=== PATIENT | male | born 1935 | race Caucasian/White ===

== ENCOUNTER 2016-06-30 10:59 | Inpatient (IN) | payer MEDICARE, OTHER ==
[~2016-06-30] VITALS: Ht 180.3 cm; Wt 90.5 kg
[~2016-06-30 10:59] MED LIST changes: -AMIO200T33 PO; -CARB25TA PO; -ESCI10TA53 PO; -FAMO-12 PO; -FURO20TA3 PO
[2016-06-30 12:18] LABS: Basophils # (auto) 0 uL; Basophils % (auto) 0.2 % (0.0-2.0); Eosinophils # (auto) 0.3 uL; Eosinophils % (auto) 3.2 % (0.0-7.0); Hematocrit 39.3 % (41.0-53.0); Hemoglobin 12.8 g/dL (13.5-17.5); Lymphocytes # (auto) 1.1 uL; Lymphocytes % (auto) 12.6 % (10.0-50.0); Mean Corpuscular Hemoglobin 30.7 pg (28.0-32.0); Mean Corpuscular Hgb Conc. 32.7 g/dL (32.0-36.0); Mean Platelet Volume 7.6 fL (7.4-10.4); Monocytes # (auto) 0.9 uL; Monocytes % (auto) 10.4 % (0.0-12.0); Neutrophils # (auto) 6.4 uL; Neutrophils % (auto) 73.6 % (37.0-80.0); Platelet Count (auto) 275 10^3/uL (140-450); Red Cell Distribution Width 15.7 % (11.6-16.0); White Blood Cell 8.7 10^3/uL (4.4-10.8)
[2016-06-30 12:34] LABS: BUN/Creatinine Ratio 22.9; Bilirubin, Total 0.4 mg/dL (0.2-1.0); Magnesium 2.5 mg/dL (1.6-2.6); Potassium 4.1 mmol/L (3.5-5.1); Total Protein 7.3 g/dL (6.4-8.2)
[2016-06-30] MEDS ORDERED: FURO20TA3 PO (14:00)
[2016-06-30] MEDS ORDERED: CARB25TA PO (14:01)
[2016-06-30] MEDS ORDERED: AMIO200T33 PO (14:02)
[2016-06-30] MEDS ORDERED: ESCI10TA53 PO (14:03)
[2016-06-30] MEDS ORDERED: FAMO-12 PO (14:03)
[2016-06-30] MEDS ORDERED: NITROGLYCERIN 0.4 MG SL TAB SL PRN (14:15)
[2016-06-30] MEDS ORDERED: LACTULOSE 20Gm/30ML SOLN PO PRN (14:15)
[2016-06-30] MEDS ORDERED: ALBUTEROL SULF 2.5 MG/0.5ML(0.5%) NEB SOLN NEB PRN (14:15)
[2016-06-30] MEDS ORDERED: HYDROcodone-ACET 5/325MG TAB PO PRN (14:15)
[2016-06-30] MEDS ORDERED: TEMAZEPAM 15 MG CAP PO PRN (14:15)
[2016-06-30] MEDS ORDERED: ONDANSETRON HCL 4 MG/2 ML VIAL IV PRN (14:15)
[2016-06-30] MEDS ORDERED: LORazepam 0.5 MG TAB PO PRN (14:15)
[2016-06-30] MEDS ORDERED: ACETAMINOPHEN 500 MG TAB PO PRN (14:15)
[2016-06-30] MEDS ORDERED: MORPHINE SULF INJ 2 MG/ML SYRINGE 1ML IV PRN ×2 (14:15)
[2016-06-30] MEDS ORDERED: AZITHROMYCIN 500MG/D5W 250ML 250 ML IV SCH (14:30)
[2016-06-30] MEDS ORDERED: cefTRIAXone 1GM/50ML D5W 50 ML IV ONE (14:30)
[2016-06-30] MEDS ORDERED: ASPirin 81 mg TAB PO ONE (14:45)
[2016-06-30] MEDS: SODIUM CHLORIDE 0.9% 1,000 ML IV SCH (15:02)
[2016-06-30] MEDS: ENOXAPARIN SOD 40 MG/0.4 ML SYRINGE SC SCH (15:03)
[2016-06-30] MEDS: AZITHROMYCIN 500MG/D5W 250ML 250 ML IV SCH (15:04)
[2016-06-30 17:05] VITALS: BP 140/59
[2016-06-30] MEDS: ALBUTEROL SULF 2.5 MG/0.5ML(0.5%) NEB SOLN NEB SCH (19:26)
[2016-06-30 22:00] VITALS: BP 119/62
[2016-06-30] MEDS: FAMOTIDINE 20 MG TAB PO SCH (22:00)
[2016-06-30] MEDS: CARB PO SCH (22:00)
[2016-06-30] MEDS: AMIODARONE HCL 200 MG TAB PO SCH (22:00)
[2016-06-30] MEDS: LEVODOPA PO SCH (22:00)
[2016-07-01] MEDS: ALBUTEROL SULF 2.5 MG/0.5ML(0.5%) NEB SOLN NEB SCH ×4 (01:50→18:38)
[2016-07-01] MEDS: SODIUM CHLORIDE 0.9% 1,000 ML IV SCH ×2 (02:43→15:20)
[2016-07-01] MEDS: CARB PO SCH ×3 (05:50→22:19)
[2016-07-01] MEDS: LEVODOPA PO SCH ×3 (05:50→22:19)
[2016-07-01] MEDS: LEVOTHYROXINE SODIUM 100 MCG TAB PO SCH (06:30)
[2016-07-01 09:00] VITALS: BP 105/56
[2016-07-01] MEDS: cefTRIAXone 1GM/50ML D5W 50 ML IV SCH (09:45)
[2016-07-01] MEDS: FUROSEMIDE 20 MG TAB PO SCH (10:00)
[2016-07-01] MEDS: AZITHROMYCIN 500MG/D5W 250ML 250 ML IV SCH (11:28)
[2016-07-01] MEDS: CITALOPRAM HYDROBR 20 MG TAB PO SCH (11:29)
[2016-07-01] MEDS: ASPirin 81 mg TAB PO SCH (11:29)
[2016-07-01] MEDS: DOCUSATE SOD 100 MG CAP PO SCH (11:29)
[2016-07-01] MEDS: AMIODARONE HCL 200 MG TAB PO SCH ×2 (11:30→22:19)
[2016-07-01] MEDS: ASPirin-EC 81 mg tab PO SCH (11:30)
[2016-07-01] MEDS: FAMOTIDINE 20 MG TAB PO SCH ×2 (11:31→22:19)
[2016-07-01] MEDS: ENOXAPARIN SOD 40 MG/0.4 ML SYRINGE SC SCH (11:31)
[2016-07-01] MEDS: CLOPIDOGREL BISULFATE 75 MG TAB PO SCH (11:31)
[2016-07-01 13:00] VITALS: BP 114/56
[2016-07-01 16:57] VITALS: BP 120/56
[2016-07-01 22:00] VITALS: BP 111/59
[2016-07-02] MEDS: ALBUTEROL SULF 2.5 MG/0.5ML(0.5%) NEB SOLN NEB SCH ×4 (00:07→19:04)
[2016-07-02] MEDS: SODIUM CHLORIDE 0.9% 1,000 ML IV SCH ×2 (03:43→16:13)
[2016-07-02 05:22] VITALS: BP 119/62
[2016-07-02] MEDS: CARB PO SCH ×3 (05:44→21:38)
[2016-07-02] MEDS: LEVODOPA PO SCH ×3 (05:44→21:38)
[2016-07-02] MEDS: LEVOTHYROXINE SODIUM 100 MCG TAB PO SCH (06:32)
[2016-07-02 09:00] VITALS: BP 116/59
[2016-07-02] MEDS: cefTRIAXone 1GM/50ML D5W 50 ML IV SCH (09:32)
[2016-07-02] MEDS: DOCUSATE SOD 100 MG CAP PO SCH (09:33)
[2016-07-02] MEDS: CLOPIDOGREL BISULFATE 75 MG TAB PO SCH (09:33)
[2016-07-02] MEDS: FUROSEMIDE 20 MG TAB PO SCH (09:33)
[2016-07-02] MEDS: AMIODARONE HCL 200 MG TAB PO SCH ×2 (09:34→21:37)
[2016-07-02] MEDS: ENOXAPARIN SOD 40 MG/0.4 ML SYRINGE SC SCH (09:34)
[2016-07-02] MEDS: ASPirin-EC 81 mg tab PO SCH (09:34)
[2016-07-02] MEDS: CITALOPRAM HYDROBR 20 MG TAB PO SCH (09:34)
[2016-07-02] MEDS: FAMOTIDINE 20 MG TAB PO SCH ×2 (09:34→21:38)
[2016-07-02] MEDS: ASPirin 81 mg TAB PO SCH (10:00)
[2016-07-02] MEDS: AZITHROMYCIN 500MG/D5W 250ML 250 ML IV SCH (11:45)
[2016-07-02 13:00] VITALS: BP 118/57
[2016-07-02 17:00] VITALS: BP 113/53
[2016-07-02 22:03] VITALS: BP 127/56
[2016-07-03] MEDS: ALBUTEROL SULF 2.5 MG/0.5ML(0.5%) NEB SOLN NEB SCH ×3 (00:33→12:00)
[2016-07-03] MEDS: SODIUM CHLORIDE 0.9% 1,000 ML IV SCH (04:43)
[2016-07-03 05:03] VITALS: BP 126/60
[2016-07-03] MEDS: CARB PO SCH ×2 (06:10→14:00)
[2016-07-03] MEDS: LEVODOPA PO SCH ×2 (06:10→14:00)
[2016-07-03] MEDS: LEVOTHYROXINE SODIUM 100 MCG TAB PO SCH (06:30)
[2016-07-03 08:19] VITALS: BP 145/62
[2016-07-03] MEDS: ENOXAPARIN SOD 40 MG/0.4 ML SYRINGE SC SCH (09:56)
[2016-07-03] MEDS: cefTRIAXone 1GM/50ML D5W 50 ML IV SCH (09:56)
[2016-07-03] MEDS: DOCUSATE SOD 100 MG CAP PO SCH (09:57)
[2016-07-03] MEDS: AMIODARONE HCL 200 MG TAB PO SCH (09:57)
[2016-07-03] MEDS: CLOPIDOGREL BISULFATE 75 MG TAB PO SCH (09:57)
[2016-07-03] MEDS: AZITHROMYCIN 500MG/D5W 250ML 250 ML IV SCH (09:57)
[2016-07-03] MEDS: CITALOPRAM HYDROBR 20 MG TAB PO SCH (09:58)
[2016-07-03] MEDS: FAMOTIDINE 20 MG TAB PO SCH (09:58)
[2016-07-03] MEDS: FUROSEMIDE 20 MG TAB PO SCH (09:59)
[2016-07-03] MEDS: ASPirin-EC 81 mg tab PO SCH (10:00)
[2016-07-03] MEDS: ASPirin 81 mg TAB PO SCH (10:00)
[2016-07-03 12:50] VITALS: BP 123/68
[2016-07-03 14:39] VITALS: BP 123/68
== END 2016-07-03 15:42 | disposition home or self-care (01) | DRG 194 ==
LOC: ER 11:04 → TELE 11:05 → TELE-EAST 16:46
PROVIDERS: ADMIT Internal Medicine; ATTEND Internal Medicine Cardiovascular Disease
DX: J18.9 Pneumonia, unspecified organism (principal); E44.1 Mild protein-calorie malnutrition; I25.10 Atherosclerotic heart disease of native coronary artery without angina pectoris; I95.1 Orthostatic hypotension; E03.9 Hypothyroidism, unspecified; E78.5 Hyperlipidemia, unspecified; F09 Unspecified mental disorder due to known physiological condition; G20 Parkinson's disease; X58.XXXA Exposure to other specified factors, initial encounter; S40.811A Abrasion of right upper arm, initial encounter; H55.00 Unspecified nystagmus; H53.2 Diplopia; I11.0 Hypertensive heart disease with heart failure; I49.5 Sick sinus syndrome; I50.9 Heart failure, unspecified; Z86.73 Personal history of transient ischemic attack (TIA), and cerebral infarction without residual deficits; Z95.5 Presence of coronary angioplasty implant and graft; Z88.0 Allergy status to penicillin; Z88.2 Allergy status to sulfonamides; Z79.82 Long term (current) use of aspirin; Z79.899 Other long term (current) drug therapy; Z90.49 Acquired absence of other specified parts of digestive tract; Z98.890 Other specified postprocedural states; Z82.49 Family history of ischemic heart disease and other diseases of the circulatory system; Y93.89 Activity, other specified; Y92.89 Other specified places as the place of occurrence of the external cause; Y99.8 Other external cause status
CPT/HCPCS: 36415; 70450; 71020; 80048; 80053; 82550; 82607; 83735; 84443; 84484; 85025; 85049; 85652; 87400; 93005; 94640; 95819; 96365; 97001; 97110; 97116; 97530; J0696

== ENCOUNTER → 2016-06-30 | Outpatient (CLI) | payer MEDICARE, OTHER ==
[~2016-06-30] MED LIST: AMIO200T33 PO; ASPI-231 PO; ATEN-60 PO; CARB25TA PO; CHOL20007 PO; CLOP75TA28 PO; DOCU-94 PO; ESCI10TA53 PO; FAMO-12 PO; FURO20TA3 PO; GLUC1CAP11 PO; ISOS20TA49 PO; LEV100T PO; MECL-87 PO; ROSU20TA14 PO; SIMV10TA73 PO
[2016-06-30 12:11] LABS: BUN/Creatinine Ratio 22.6; Calcium 8.9 mg/dL (8.5-10.1); Potassium 3.8 mmol/L (3.5-5.1)
[2016-06-30 12:55] LABS: Basophils # (auto) 0 uL; Eosinophils # (auto) 0.3 uL; Eosinophils % (auto) 3.6 % (0.0-7.0); Hematocrit 38.2 % (41.0-53.0); Hemoglobin 12.2 g/dL (13.5-17.5); Lymphocytes # (auto) 1.1 uL; Mean Corpuscular Hemoglobin 30.5 pg (28.0-32.0); Mean Corpuscular Volume 95.5 fL (80.0-100.0); Monocytes # (auto) 0.9 uL; Monocytes % (auto) 10.5 % (0.0-12.0); Neutrophils # (auto) 6.5 uL; Neutrophils % (auto) 72.9 % (37.0-80.0); Platelet Count (auto) 238 10^3/uL (140-450); Red Cell Distribution Width 14.9 % (11.6-16.0); White Blood Cell 8.8 10^3/uL (4.4-10.8)
== END | disposition home or self-care (01) ==
LOC: LAB 08:56
PROVIDERS: ATTEND Internal Medicine Cardiovascular Disease
DX: I10 Essential (primary) hypertension (principal); D64.9 Anemia, unspecified
CPT/HCPCS: 36415; 80048; 85025; 85049

== ENCOUNTER 2016-07-24 20:08 | Emergency (ER) | payer MEDICARE, OTHER ==
[~2016-07-24] VITALS: Ht 180.3 cm; Wt 90.7 kg
[~2016-07-24 20:08] MED LIST changes: +AMIO200T33 PO; -ATEN-60 PO; +CARB25TA PO; -CHOL20007 PO; +ESCI10TA53 PO; +FAMO-12 PO; +FURO20TA3 PO; -GLUC1CAP11 PO; -ISOS20TA49 PO; -MECL-87 PO; -ROSU20TA14 PO; -SIMV10TA73 PO
[2016-07-24 21:15] LABS: Basophils # (auto) 0 uL; Basophils % (auto) 0.2 % (0.0-2.0); Eosinophils # (auto) 0.2 uL; Hematocrit 39.4 % (41.0-53.0); Hemoglobin 12.4 g/dL (13.5-17.5); Lymphocytes # (auto) 1.4 uL; Lymphocytes % (auto) 17.1 % (10.0-50.0); Mean Corpuscular Hemoglobin 29.8 pg (28.0-32.0); Mean Corpuscular Hgb Conc. 31.4 g/dL (32.0-36.0); Mean Platelet Volume 7.3 fL (7.4-10.4); Monocytes # (auto) 0.8 uL; Monocytes % (auto) 9.3 % (0.0-12.0); Neutrophils # (auto) 5.8 uL; Neutrophils % (auto) 70.4 % (37.0-80.0); Platelet Count (auto) 312 10^3/uL (140-450); Red Cell Distribution Width 15.3 % (11.6-16.0); White Blood Cell 8.3 10^3/uL (4.4-10.8)
[2016-07-24 21:33] LABS: INR 1.05 (0.9-1.15); Partial Thromboplastin Time 26.6 sec (22.64-33.71); Potassium 3.9 mmol/L (3.5-5.1); Prothrombin Time 10.8 sec (9.37-12.3)
[2016-07-24 21:39] LABS: Albumin 2.9 g/dL (3.4-5.0); BUN/Creatinine Ratio 18.7; Calcium 8.9 mg/dL (8.5-10.1)
[2016-07-24 21:41] LABS: Bilirubin, Total 0.3 mg/dL (0.2-1.0); Total Protein 7.3 g/dL (6.4-8.2)
[2016-07-24 22:41] VITALS: BP 140/60
== END 2016-07-24 23:11 | disposition home or self-care (01) ==
LOC: ER 20:15
DX: C43.39 Malignant melanoma of other parts of face (principal); Z48.01 Encounter for change or removal of surgical wound dressing; I11.0 Hypertensive heart disease with heart failure; I50.9 Heart failure, unspecified; E78.5 Hyperlipidemia, unspecified; F17.290 Nicotine dependence, other tobacco product, uncomplicated; Z86.73 Personal history of transient ischemic attack (TIA), and cerebral infarction without residual deficits; Z90.89 Acquired absence of other organs; Z98.61 Coronary angioplasty status; Z98.890 Other specified postprocedural states; Z88.0 Allergy status to penicillin; Z88.1 Allergy status to other antibiotic agents
CPT/HCPCS: 36415; 80053; 85025; 85610; 85730

== ENCOUNTER → 2016-08-14 | Outpatient (CLI) | payer MEDICARE, OTHER ==
[~2016-08-14] MED LIST changes: +IOHEXOL 350 MG/ML 100ML IJ ONE
[2016-08-14 10:05] VITALS: BP 142/67
[2016-08-14 10:45] VITALS: BP 140/76
== END | disposition home or self-care (01) ==
LOC: Rad HDHVI 09:52
PROVIDERS: ATTEND Internal Medicine Cardiovascular Disease
DX: H35.9 Unspecified retinal disorder (principal); I11.0 Hypertensive heart disease with heart failure; I50.9 Heart failure, unspecified; E78.5 Hyperlipidemia, unspecified; Z95.5 Presence of coronary angioplasty implant and graft; R51 Headache
CPT/HCPCS: 70470; 96374; G0463; Q9967

== ENCOUNTER → 2016-08-28 | Outpatient (CLI) | payer MEDICARE, OTHER ==
[~2016-08-28] MED LIST changes: -IOHEXOL 350 MG/ML 100ML IJ ONE
== END | disposition home or self-care (01) ==
LOC: CHF HDHVI 12:10
PROVIDERS: ATTEND Internal Medicine Cardiovascular Disease
DX: E03.9 Hypothyroidism, unspecified (principal)
CPT/HCPCS: 36415; 84439; 84443

== ENCOUNTER → 2016-08-31 | Outpatient (CLI) | payer MEDICARE, OTHER ==
[2016-08-31 12:16] VITALS: BP_SYST 145; BP_SYST 155; BP_DIAS 82; BP_DIAS 88
== END | disposition home or self-care (01) ==
LOC: CHF HDHVI 11:50
PROVIDERS: ATTEND Internal Medicine Cardiovascular Disease
DX: I50.23 Acute on chronic systolic (congestive) heart failure (principal); I25.118 Atherosclerotic heart disease of native coronary artery with other forms of angina pectoris; I63.9 Cerebral infarction, unspecified; R06.02 Shortness of breath
CPT/HCPCS: G0166

== ENCOUNTER → 2016-09-01 | Outpatient (CLI) | payer MEDICARE, OTHER ==
[2016-09-01 12:01] VITALS: BP_SYST 137; BP_SYST 142; BP_DIAS 76; BP_DIAS 80
== END | disposition home or self-care (01) ==
LOC: CHF HDHVI 11:39
PROVIDERS: ATTEND Internal Medicine Cardiovascular Disease
DX: I50.23 Acute on chronic systolic (congestive) heart failure (principal); I25.118 Atherosclerotic heart disease of native coronary artery with other forms of angina pectoris; I63.9 Cerebral infarction, unspecified; R06.02 Shortness of breath
CPT/HCPCS: G0166

== ENCOUNTER → 2016-09-04 | Outpatient (CLI) | payer MEDICARE, OTHER ==
[2016-09-04 12:06] VITALS: BP_SYST 134; BP_SYST 136; BP_DIAS 80; BP_DIAS 82
== END | disposition home or self-care (01) ==
LOC: CHF HDHVI 11:51
PROVIDERS: ATTEND Internal Medicine Cardiovascular Disease
DX: I50.23 Acute on chronic systolic (congestive) heart failure (principal); I25.118 Atherosclerotic heart disease of native coronary artery with other forms of angina pectoris; I63.9 Cerebral infarction, unspecified; R06.02 Shortness of breath
CPT/HCPCS: G0166

== ENCOUNTER → 2016-09-05 | Outpatient (CLI) | payer MEDICARE, OTHER ==
[2016-09-05 12:17] VITALS: BP_SYST 149; BP_SYST 161; BP_DIAS 78; BP_DIAS 86
== END | disposition home or self-care (01) ==
LOC: CHF HDHVI 11:46
PROVIDERS: ATTEND Internal Medicine Cardiovascular Disease
DX: I50.23 Acute on chronic systolic (congestive) heart failure (principal); I25.118 Atherosclerotic heart disease of native coronary artery with other forms of angina pectoris; I63.9 Cerebral infarction, unspecified; R06.02 Shortness of breath
CPT/HCPCS: G0166

== ENCOUNTER → 2016-09-07 | Outpatient (CLI) | payer MEDICARE, OTHER ==
[2016-09-07 12:00] VITALS: BP_SYST 142; BP_DIAS 68; BP_DIAS 78
== END ==
LOC: CHF HDHVI 11:44
PROVIDERS: ATTEND Internal Medicine Cardiovascular Disease
DX: I25.118 Atherosclerotic heart disease of native coronary artery with other forms of angina pectoris (principal); I50.23 Acute on chronic systolic (congestive) heart failure; R06.02 Shortness of breath; I63.9 Cerebral infarction, unspecified
CPT/HCPCS: G0166

== ENCOUNTER → 2016-09-11 | Outpatient (CLI) | payer MEDICARE, OTHER ==
[2016-09-11 11:58] VITALS: BP_SYST 136; BP_SYST 140; BP_DIAS 66; BP_DIAS 79
== END ==
LOC: CHF HDHVI 11:43
PROVIDERS: ATTEND Internal Medicine Cardiovascular Disease
DX: I25.118 Atherosclerotic heart disease of native coronary artery with other forms of angina pectoris (principal); I50.23 Acute on chronic systolic (congestive) heart failure; R06.02 Shortness of breath; I63.9 Cerebral infarction, unspecified
CPT/HCPCS: G0166

== ENCOUNTER → 2016-09-12 | Outpatient (CLI) | payer MEDICARE, OTHER ==
[2016-09-12 12:07] VITALS: BP_SYST 129; BP_SYST 137; BP_DIAS 69
== END | disposition home or self-care (01) ==
LOC: CHF HDHVI 11:54
PROVIDERS: ATTEND Internal Medicine Cardiovascular Disease
DX: I25.118 Atherosclerotic heart disease of native coronary artery with other forms of angina pectoris (principal); I50.23 Acute on chronic systolic (congestive) heart failure; I63.9 Cerebral infarction, unspecified; R06.02 Shortness of breath
CPT/HCPCS: G0166

== ENCOUNTER → 2016-09-13 | Outpatient (CLI) | payer MEDICARE, OTHER ==
[2016-09-13 12:26] VITALS: BP_SYST 138; BP_SYST 152; BP_DIAS 77; BP_DIAS 80
== END | disposition home or self-care (01) ==
LOC: CHF HDHVI 11:56
PROVIDERS: ATTEND Internal Medicine Cardiovascular Disease
DX: I25.118 Atherosclerotic heart disease of native coronary artery with other forms of angina pectoris (principal); I63.9 Cerebral infarction, unspecified; R06.02 Shortness of breath
CPT/HCPCS: G0166

== ENCOUNTER → 2016-09-14 | Outpatient (CLI) | payer MEDICARE, OTHER ==
[2016-09-14 12:15] VITALS: BP_SYST 122; BP_SYST 159; BP_DIAS 66; BP_DIAS 90
== END | disposition home or self-care (01) ==
LOC: CHF HDHVI 11:51
PROVIDERS: ATTEND Internal Medicine Cardiovascular Disease
DX: I25.118 Atherosclerotic heart disease of native coronary artery with other forms of angina pectoris (principal); I50.23 Acute on chronic systolic (congestive) heart failure; R06.02 Shortness of breath; I63.9 Cerebral infarction, unspecified
CPT/HCPCS: G0166

== ENCOUNTER → 2016-09-15 | Outpatient (CLI) | payer MEDICARE, OTHER ==
[2016-09-15 11:58] VITALS: BP_SYST 138; BP_SYST 140; BP_DIAS 70; BP_DIAS 72
== END | disposition home or self-care (01) ==
LOC: CHF HDHVI 11:41
PROVIDERS: ATTEND Internal Medicine Cardiovascular Disease
DX: I25.118 Atherosclerotic heart disease of native coronary artery with other forms of angina pectoris (principal); I50.23 Acute on chronic systolic (congestive) heart failure; I63.9 Cerebral infarction, unspecified; R06.02 Shortness of breath; I73.9 Peripheral vascular disease, unspecified
CPT/HCPCS: G0166

== ENCOUNTER → 2016-09-18 | Outpatient (CLI) | payer MEDICARE, OTHER ==
[2016-09-18 12:08] VITALS: BP_SYST 122; BP_SYST 124; BP_DIAS 64; BP_DIAS 75
== END | disposition home or self-care (01) ==
LOC: CHF HDHVI 11:51
PROVIDERS: ATTEND Internal Medicine Cardiovascular Disease
DX: I25.118 Atherosclerotic heart disease of native coronary artery with other forms of angina pectoris (principal); I50.23 Acute on chronic systolic (congestive) heart failure; R06.02 Shortness of breath; I63.9 Cerebral infarction, unspecified; I73.9 Peripheral vascular disease, unspecified
CPT/HCPCS: G0166

== ENCOUNTER → 2016-09-19 | Outpatient (CLI) | payer MEDICARE, OTHER ==
[2016-09-19 12:09] VITALS: BP_SYST 134; BP_SYST 150; BP_DIAS 77; BP_DIAS 78
== END | disposition home or self-care (01) ==
LOC: CHF HDHVI 11:52
PROVIDERS: ATTEND Internal Medicine Cardiovascular Disease
DX: I25.118 Atherosclerotic heart disease of native coronary artery with other forms of angina pectoris (principal); I50.23 Acute on chronic systolic (congestive) heart failure; I63.9 Cerebral infarction, unspecified; R06.02 Shortness of breath; I73.9 Peripheral vascular disease, unspecified
CPT/HCPCS: G0166

== ENCOUNTER → 2016-09-20 | Outpatient (CLI) | payer MEDICARE, OTHER ==
[2016-09-20 12:05] VITALS: BP_SYST 134; BP_SYST 140; BP_DIAS 68; BP_DIAS 78
== END | disposition home or self-care (01) ==
LOC: CHF HDHVI 12:01
PROVIDERS: ATTEND Internal Medicine Cardiovascular Disease
DX: I25.118 Atherosclerotic heart disease of native coronary artery with other forms of angina pectoris (principal); I50.23 Acute on chronic systolic (congestive) heart failure; I63.9 Cerebral infarction, unspecified; E11.9 Type 2 diabetes mellitus without complications; I73.9 Peripheral vascular disease, unspecified
CPT/HCPCS: G0166

== ENCOUNTER → 2016-09-21 | Outpatient (CLI) | payer MEDICARE, OTHER ==
[2016-09-21 12:07] VITALS: BP_SYST 138; BP_SYST 147; BP_DIAS 77; BP_DIAS 87
== END | disposition home or self-care (01) ==
LOC: CHF HDHVI 11:57
PROVIDERS: ATTEND Internal Medicine Cardiovascular Disease
DX: I25.118 Atherosclerotic heart disease of native coronary artery with other forms of angina pectoris (principal); I50.23 Acute on chronic systolic (congestive) heart failure; I63.9 Cerebral infarction, unspecified; I73.9 Peripheral vascular disease, unspecified; R06.02 Shortness of breath
CPT/HCPCS: G0166

== ENCOUNTER → 2016-09-26 | Outpatient (CLI) | payer MEDICARE, OTHER ==
[2016-09-26 11:55] VITALS: BP_SYST 118; BP_SYST 124; BP_DIAS 63; BP_DIAS 71
== END | disposition home or self-care (01) ==
LOC: CHF HDHVI 11:37
PROVIDERS: ATTEND Internal Medicine Cardiovascular Disease
DX: I50.23 Acute on chronic systolic (congestive) heart failure (principal); I25.118 Atherosclerotic heart disease of native coronary artery with other forms of angina pectoris; I63.9 Cerebral infarction, unspecified
CPT/HCPCS: G0166

== ENCOUNTER → 2016-09-28 | Outpatient (CLI) | payer MEDICARE, OTHER ==
[2016-09-28 11:45] VITALS: BP_SYST 132; BP_SYST 136; BP_DIAS 79; BP_DIAS 86
== END | disposition home or self-care (01) ==
LOC: CHF HDHVI 11:34
PROVIDERS: ATTEND Internal Medicine Cardiovascular Disease
DX: I25.118 Atherosclerotic heart disease of native coronary artery with other forms of angina pectoris (principal); I50.23 Acute on chronic systolic (congestive) heart failure; I63.9 Cerebral infarction, unspecified; I73.9 Peripheral vascular disease, unspecified; R06.02 Shortness of breath
CPT/HCPCS: G0166

== ENCOUNTER → 2016-09-29 | Outpatient (CLI) | payer MEDICARE, OTHER ==
[2016-09-29 12:06] VITALS: BP_SYST 128; BP_SYST 138; BP_DIAS 68; BP_DIAS 72
== END | disposition home or self-care (01) ==
LOC: CHF HDHVI 11:50
PROVIDERS: ATTEND Internal Medicine Cardiovascular Disease
DX: I25.118 Atherosclerotic heart disease of native coronary artery with other forms of angina pectoris (principal); I50.23 Acute on chronic systolic (congestive) heart failure; I63.9 Cerebral infarction, unspecified; I73.9 Peripheral vascular disease, unspecified; R06.02 Shortness of breath
CPT/HCPCS: G0166

== ENCOUNTER → 2016-10-02 | Outpatient (CLI) | payer MEDICARE, OTHER ==
[2016-10-02 12:09] VITALS: BP_SYST 128; BP_SYST 140; BP_DIAS 70; BP_DIAS 76
== END | disposition home or self-care (01) ==
LOC: CHF HDHVI 11:54
PROVIDERS: ATTEND Internal Medicine Cardiovascular Disease
DX: I25.118 Atherosclerotic heart disease of native coronary artery with other forms of angina pectoris (principal); I50.23 Acute on chronic systolic (congestive) heart failure; I63.9 Cerebral infarction, unspecified; I73.9 Peripheral vascular disease, unspecified; R06.02 Shortness of breath
CPT/HCPCS: G0166

== ENCOUNTER → 2016-10-03 | Outpatient (CLI) | payer MEDICARE, OTHER ==
[2016-10-03 12:07] VITALS: BP_SYST 122; BP_SYST 137; BP_DIAS 66; BP_DIAS 75
== END | disposition home or self-care (01) ==
LOC: CHF HDHVI 11:47
PROVIDERS: ATTEND Internal Medicine Cardiovascular Disease
DX: I25.118 Atherosclerotic heart disease of native coronary artery with other forms of angina pectoris (principal); I50.23 Acute on chronic systolic (congestive) heart failure; I63.9 Cerebral infarction, unspecified; I73.9 Peripheral vascular disease, unspecified; R06.02 Shortness of breath
CPT/HCPCS: G0166

== ENCOUNTER → 2016-10-04 | Outpatient (CLI) | payer MEDICARE, OTHER ==
[2016-10-04 11:58] VITALS: BP_SYST 122; BP_SYST 140; BP_DIAS 77; BP_DIAS 79
== END | disposition home or self-care (01) ==
LOC: CHF HDHVI 11:51
PROVIDERS: ATTEND Internal Medicine Cardiovascular Disease
DX: I25.118 Atherosclerotic heart disease of native coronary artery with other forms of angina pectoris (principal); I50.23 Acute on chronic systolic (congestive) heart failure; I63.9 Cerebral infarction, unspecified; I73.9 Peripheral vascular disease, unspecified; R06.02 Shortness of breath
CPT/HCPCS: G0166

== ENCOUNTER → 2016-10-05 | Outpatient (CLI) | payer MEDICARE, OTHER ==
[2016-10-05 12:05] VITALS: BP_SYST 142; BP_SYST 156; BP_DIAS 76; BP_DIAS 78
== END | disposition home or self-care (01) ==
LOC: CHF HDHVI 11:45
PROVIDERS: ATTEND Internal Medicine Cardiovascular Disease
CPT/HCPCS: G0166

== ENCOUNTER → 2016-10-30 | Outpatient (CLI) | payer MEDICARE, OTHER ==
[2016-10-30 10:39] VITALS: BP_SYST 125; BP_SYST 126; BP_DIAS 72; BP_DIAS 83
== END | disposition home or self-care (01) ==
LOC: CHF HDHVI 10:11
PROVIDERS: ATTEND Internal Medicine Cardiovascular Disease
DX: I25.118 Atherosclerotic heart disease of native coronary artery with other forms of angina pectoris (principal); I50.23 Acute on chronic systolic (congestive) heart failure; I63.9 Cerebral infarction, unspecified; I73.9 Peripheral vascular disease, unspecified
CPT/HCPCS: G0166

== ENCOUNTER → 2016-10-31 | Outpatient (CLI) | payer MEDICARE, OTHER ==
[2016-10-31 10:39] VITALS: BP_SYST 136; BP_SYST 146; BP_DIAS 82; BP_DIAS 83
== END | disposition home or self-care (01) ==
LOC: CHF HDHVI 09:46
PROVIDERS: ATTEND Internal Medicine Cardiovascular Disease
DX: I25.118 Atherosclerotic heart disease of native coronary artery with other forms of angina pectoris (principal); I50.23 Acute on chronic systolic (congestive) heart failure; I63.9 Cerebral infarction, unspecified; I73.9 Peripheral vascular disease, unspecified
CPT/HCPCS: G0166

== ENCOUNTER → 2016-11-01 | Outpatient (CLI) | payer MEDICARE, OTHER ==
[2016-11-01 10:41] VITALS: BP_SYST 129; BP_SYST 134; BP_DIAS 76; BP_DIAS 78
== END | disposition home or self-care (01) ==
LOC: CHF HDHVI 09:53
PROVIDERS: ATTEND Internal Medicine Cardiovascular Disease
DX: I25.118 Atherosclerotic heart disease of native coronary artery with other forms of angina pectoris (principal); I50.23 Acute on chronic systolic (congestive) heart failure; I63.9 Cerebral infarction, unspecified; I73.9 Peripheral vascular disease, unspecified
CPT/HCPCS: G0166

== ENCOUNTER → 2016-11-02 | Outpatient (CLI) | payer MEDICARE, OTHER ==
[2016-11-02 10:52] VITALS: BP_SYST 142; BP_SYST 144; BP_DIAS 74; BP_DIAS 75
== END | disposition home or self-care (01) ==
LOC: CHF HDHVI 10:05
PROVIDERS: ATTEND Internal Medicine Cardiovascular Disease
DX: I25.118 Atherosclerotic heart disease of native coronary artery with other forms of angina pectoris (principal); I50.23 Acute on chronic systolic (congestive) heart failure; I63.9 Cerebral infarction, unspecified
CPT/HCPCS: G0166

== ENCOUNTER → 2016-11-03 | Outpatient (CLI) | payer MEDICARE, OTHER ==
[2016-11-03 10:42] VITALS: BP_SYST 133; BP_SYST 139; BP_DIAS 65; BP_DIAS 72
== END | disposition home or self-care (01) ==
LOC: CHF HDHVI 10:05
PROVIDERS: ATTEND Internal Medicine Cardiovascular Disease
DX: I25.118 Atherosclerotic heart disease of native coronary artery with other forms of angina pectoris (principal); I50.23 Acute on chronic systolic (congestive) heart failure; I63.9 Cerebral infarction, unspecified; I73.9 Peripheral vascular disease, unspecified
CPT/HCPCS: G0166

== ENCOUNTER → 2016-11-07 | Outpatient (CLI) | payer MEDICARE, OTHER ==
[2016-11-07 10:30] VITALS: BP_SYST 136; BP_SYST 140; BP_DIAS 71; BP_DIAS 76
== END | disposition home or self-care (01) ==
LOC: CHF HDHVI 10:04
PROVIDERS: ATTEND Internal Medicine Cardiovascular Disease
DX: I25.118 Atherosclerotic heart disease of native coronary artery with other forms of angina pectoris (principal); I50.23 Acute on chronic systolic (congestive) heart failure; I63.9 Cerebral infarction, unspecified; I67.9 Cerebrovascular disease, unspecified; R06.02 Shortness of breath
CPT/HCPCS: G0166

== ENCOUNTER → 2016-11-09 | Outpatient (CLI) | payer MEDICARE, OTHER ==
[2016-11-09 10:39] VITALS: BP_SYST 140; BP_SYST 142; BP_DIAS 73; BP_DIAS 76
== END | disposition home or self-care (01) ==
LOC: CHF HDHVI 10:08
PROVIDERS: ATTEND Internal Medicine Cardiovascular Disease
DX: I25.118 Atherosclerotic heart disease of native coronary artery with other forms of angina pectoris (principal); I50.23 Acute on chronic systolic (congestive) heart failure; I63.9 Cerebral infarction, unspecified; I73.9 Peripheral vascular disease, unspecified
CPT/HCPCS: G0166

== ENCOUNTER → 2016-11-10 | Outpatient (CLI) | payer MEDICARE, OTHER ==
[2016-11-10 10:31] VITALS: BP_SYST 124; BP_SYST 130; BP_DIAS 63; BP_DIAS 64
== END | disposition home or self-care (01) ==
LOC: CHF HDHVI 09:58
PROVIDERS: ATTEND Internal Medicine Cardiovascular Disease
DX: I25.118 Atherosclerotic heart disease of native coronary artery with other forms of angina pectoris (principal); I50.33 Acute on chronic diastolic (congestive) heart failure; I63.9 Cerebral infarction, unspecified; I73.9 Peripheral vascular disease, unspecified
CPT/HCPCS: G0166

== ENCOUNTER → 2016-11-13 | Outpatient (CLI) | payer MEDICARE, OTHER ==
[2016-11-13 10:34] VITALS: BP_SYST 140; BP_SYST 145; BP_DIAS 71
== END | disposition home or self-care (01) ==
LOC: CHF HDHVI 09:47
PROVIDERS: ATTEND Internal Medicine Cardiovascular Disease
DX: I25.118 Atherosclerotic heart disease of native coronary artery with other forms of angina pectoris (principal); I50.23 Acute on chronic systolic (congestive) heart failure; I63.9 Cerebral infarction, unspecified; I73.9 Peripheral vascular disease, unspecified
CPT/HCPCS: G0166

== ENCOUNTER → 2016-11-14 | Outpatient (CLI) | payer MEDICARE, OTHER ==
[2016-11-14 10:26] VITALS: BP_SYST 121; BP_SYST 126; BP_DIAS 59; BP_DIAS 60
== END | disposition home or self-care (01) ==
LOC: CHF HDHVI 10:00
PROVIDERS: ATTEND Internal Medicine Cardiovascular Disease
DX: I25.118 Atherosclerotic heart disease of native coronary artery with other forms of angina pectoris (principal); I50.23 Acute on chronic systolic (congestive) heart failure; I63.9 Cerebral infarction, unspecified; I73.9 Peripheral vascular disease, unspecified
CPT/HCPCS: G0166

== ENCOUNTER → 2016-11-15 | Outpatient (CLI) | payer MEDICARE, OTHER ==
[2016-11-15 10:15] VITALS: BP_SYST 130; BP_DIAS 59; BP_DIAS 62
== END | disposition home or self-care (01) ==
LOC: Rad HDHVI 08:25
PROVIDERS: ATTEND Internal Medicine Cardiovascular Disease
DX: I25.118 Atherosclerotic heart disease of native coronary artery with other forms of angina pectoris (principal); I50.23 Acute on chronic systolic (congestive) heart failure; I63.9 Cerebral infarction, unspecified; I73.9 Peripheral vascular disease, unspecified; I49.5 Sick sinus syndrome
CPT/HCPCS: 93306; G0166

== ENCOUNTER → 2016-11-16 | Outpatient (CLI) | payer MEDICARE, OTHER ==
[2016-11-16 10:18] VITALS: BP_SYST 136; BP_SYST 138; BP_DIAS 67; BP_DIAS 72
== END | disposition home or self-care (01) ==
LOC: CHF HDHVI 10:00
PROVIDERS: ATTEND Internal Medicine Cardiovascular Disease
DX: I25.118 Atherosclerotic heart disease of native coronary artery with other forms of angina pectoris (principal); I50.23 Acute on chronic systolic (congestive) heart failure; I63.9 Cerebral infarction, unspecified; I73.9 Peripheral vascular disease, unspecified
CPT/HCPCS: G0166

== ENCOUNTER → 2016-11-17 | Outpatient (CLI) | payer MEDICARE, OTHER ==
[2016-11-17 10:22] VITALS: BP_SYST 131; BP_SYST 138; BP_DIAS 63; BP_DIAS 69
== END | disposition home or self-care (01) ==
LOC: CHF HDHVI 10:16
PROVIDERS: ATTEND Internal Medicine Cardiovascular Disease
DX: I25.118 Atherosclerotic heart disease of native coronary artery with other forms of angina pectoris (principal); I50.23 Acute on chronic systolic (congestive) heart failure; I63.9 Cerebral infarction, unspecified; I73.9 Peripheral vascular disease, unspecified
CPT/HCPCS: G0166

== ENCOUNTER → 2016-11-20 | Outpatient (CLI) | payer MEDICARE, OTHER ==
[2016-11-20 10:28] VITALS: BP_SYST 138; BP_SYST 154; BP_DIAS 77; BP_DIAS 84
[2016-11-20 12:00] VITALS: BP 154/84
[2016-11-20 12:35] VITALS: BP 138/77
== END | disposition home or self-care (01) ==
LOC: CHF HDHVI 09:56
PROVIDERS: ATTEND Internal Medicine Cardiovascular Disease
DX: I25.118 Atherosclerotic heart disease of native coronary artery with other forms of angina pectoris (principal); I50.23 Acute on chronic systolic (congestive) heart failure; I63.9 Cerebral infarction, unspecified; I73.9 Peripheral vascular disease, unspecified
CPT/HCPCS: G0166; G0463